=== PATIENT | female | born 1960 | race Caucasian/White ===

== ENCOUNTER → 2018-11-22 09:19 | Outpatient (CLI) | payer MEDICARE ==
[~2018-11-22 09:19] MED LIST: BACLOFEN20 M1 PO; CHRONULAC30 ML PO; EFFEXOR75 MG PO; ESTRACE2 MG PO; INVEGA 3 MG ER T3 MG PO; KLONOPIN1 MG PO; LINZESS145 MCG PO; MAXALT10 MG PO; NEURONTIN800 MG PO; PHENERGAN25 M1 PO; REGLAN10 MG PO; TEMAZEPAM30 MG PO; ULTRAM50 MG PO; VITAMIN D31000 UNI2 PO; ZONEGRAN100 MG PO
== END | disposition home or self-care (01) ==
LOC: D.RAD 09:19
PROVIDERS: ATTEND Internal Medicine Gastroenterology
DX: K59.09 Other constipation (principal); R19.4 Change in bowel habit; R10.9 Unspecified abdominal pain; R11.0 Nausea

== ENCOUNTER → 2018-11-23 10:42 | Outpatient (CLI) | payer MEDICARE | END | disposition home or self-care (01) | LOC: D.RAD 10:42 | PROVIDERS: ATTEND Internal Medicine Gastroenterology | DX: K59.00 Constipation, unspecified (principal) ==

== ENCOUNTER → 2018-11-24 08:53 | Outpatient (CLI) | payer MEDICARE | END | disposition home or self-care (01) | LOC: D.RAD 08:53 | PROVIDERS: ATTEND Internal Medicine Gastroenterology | DX: K59.00 Constipation, unspecified (principal) ==

== ENCOUNTER 2018-11-24 11:57 | Emergency (ER) | payer MEDICARE ==
[2018-11-24 12:43] VITALS: BMI 25.6
[2018-11-24] MEDS ORDERED: KLONOPIN1 MG PO (12:44)
[2018-11-24] MEDS ORDERED: EFFEXOR75 MG PO (12:45)
[2018-11-24] MEDS ORDERED: INVEGA 3 MG ER T3 MG PO (12:45)
[2018-11-24] MEDS ORDERED: ESTRACE2 MG PO (12:45)
[2018-11-24] MEDS ORDERED: ULTRAM50 MG PO (12:46)
[2018-11-24] MEDS ORDERED: BACLOFEN20 M1 PO (12:46)
[2018-11-24] MEDS ORDERED: REGLAN10 MG PO (12:46)
[2018-11-24] MEDS ORDERED: NEURONTIN800 MG PO (12:46)
[2018-11-24] MEDS ORDERED: PHENERGAN25 M1 PO (12:47)
[2018-11-24] MEDS ORDERED: MAXALT10 MG PO (12:47)
[2018-11-24] MEDS ORDERED: ZONEGRAN100 MG PO (12:48)
[2018-11-24] MEDS ORDERED: TEMAZEPAM30 MG PO (12:48)
[2018-11-24] MEDS ORDERED: LINZESS145 MCG PO (12:49)
[2018-11-24] MEDS ORDERED: VITAMIN D31000 UNI2 PO (12:49)
[2018-11-24] MEDS ORDERED: CHRONULAC30 ML PO (12:50)
[2018-11-24 13:40] LABS: BASOPHILS 0.3 % (0-2); EOSINOPHILS 10.4 % (0-7); HEMATOCRIT 34.1 % (36.0-48.0); HEMOGLOBIN 11.2 g/dL (12-16); IMMATURE GRANULOCYTES 0.3 % (0-5); LYMPHOCYTES 25.4 % (15-50); MCH 32.7 pg (26.0-34.0); MCHC 32.8 g/dL (31.0-37.0); MCV 99.7 fL (80.0-100.0); MEAN PLATELET VOLUME 8.3 fL (7.4-10.4); MONOCYTES 2.3 % (2-11); NEUTROPHILS 61.3 % (40-80); PLATELET COUNT 249 10x3/uL (130-400); RBC 3.42 10x6/uL (4.00-5.40); RDW 12.9 % (11.5-14.5); WBC 9.2 10x3/uL (4.8-10.8)
[2018-11-24 14:05] LABS: ALKALINE PHOSPHATASE 46 U/L (46-116); ALT (SGPT) 36 U/L (10-68); BILIRUBIN - TOTAL 0.17 mg/dL (0.2-1.3); CALC OSMOLALITY 256 mosm/kg (275-300); CARBON DIOXIDE 26.8 mmol/L (21.0-32.0); CHLORIDE - SERUM 94 mmol/L (98-107); CREATININE - SERUM 0.6 mg/dL (0.6-1.3); GLUCOSE 161 mg/dL (74-106); POTASSIUM - SERUM 3.2 mmol/L (3.5-5.1); PROTEIN - SERUM 5.4 g/dL (6.4-8.2); SODIUM 127 mmol/L (136-145); UREA NITROGEN 9 mg/dL (7-18); eGFR NON AFRICAN AMERICAN > 90 mL/min (90-120)
[2018-11-24 14:57] LABS: APPEARANCE CLEAR (CLEAR); COLOR YELLOW (YELLOW)
[2018-11-24 14:58] LABS: BILIRUBIN NEGATIVE (NEGATIVE); GLUCOSE NEGATIVE (NEGATIVE); KETONE NEGATIVE (NEGATIVE); NITRITE NEGATIVE (NEGATIVE); PROTEIN NEGATIVE (NEGATIVE); UROBILINOGEN NORMAL (NORMAL)
[2018-11-24 18:37] VITALS: BP 120/74
== END 2018-11-24 18:05 | disposition home or self-care (01) ==
LOC: D.ER 11:57
PROVIDERS: Emergency Medicine
DX: K59.09 Other constipation (principal); R10.9 Unspecified abdominal pain; M47.816 Spondylosis without myelopathy or radiculopathy, lumbar region